=== PATIENT | female | born 1950 | race Caucasian/White ===

== ENCOUNTER 2016-05-05 06:05 | Emergency (ER) | payer BC, MEDICARE ==
[2016-05-05] MEDS ORDERED: PREDNISONE 20 MG TAB PO ONE (06:31)
--- NOTE | 2016-05-05 06:31 | Emergency Department Record ---
History of Present Illness - General Chief complaint: ENT Stated complaint: LOUD RINGING IN EAR Time Seen by Provider: 05/05/16 06:21 Source: Patient Mode of Arrival: Ambulatory Limitations: No limitations - History of Present Illness Initial comments: 65 yo female presents with ringing sound in the in the left ear for the last 45 minutes. She denies and headaches, fevers, trauma, vision changes, speech changes, dizziness, nausea, headache, or pain. No changes to her ability to hear on the left. She does have TMJ popping frequently. No new medications. No feeling of popping or fullness. No drainage. No swooshing noise or pulsation. MD complaint: Other (Ear ringing) Onset/Timin -: Minutes(s) Location: R ear Severity: Moderate Quality: Other (ringing) Improves with: None Worsens with: None Context-Epistaxis: Aspirin use - Related Data Home Medications Medication Instructions Recorded Confirmed Last Taken Amlodipine Besylate [Norvasc] 5 mg PO DAILY 06/11/14 05/05/16 Unknown Levothyroxine Sodium [Synthroid] 112 mcg PO DAILY 06/11/14 05/05/16 Unknown Aspirin 81 mg PO DAILY 05/05/16 05/05/16 Unknown Meclizine HCl [Antivert] 25 mg PO DAILY 05/05/16 05/05/16 Unknown Omeprazole 40 mg PO ASDIR 05/05/16 05/05/16 Unknown Oxybutynin Chloride [Ditropan Xl] 10 mg PO DAILY 05/05/16 05/05/16 Unknown Previous Rx's Medication Instructions Recorded Alprazolam [Xanax] 0.25 mg PO QHS #4 tablet 05/05/16 Prednisone [Prednisone 20Mg] 20 mg PO DAILY #4 tab 05/05/16 Allergies Allergy/AdvReac Type Severity Reaction Status Date / Time Sulfa (Sulfonamide Allergy Severe BRUISING Verified 05/05/16 06:09 Antibiotics) Travel Screening - Travel/Exposure Within Last 30 Days Have you traveled within the last 30 days?: No - Travel Symptoms Symptom Screening: None Review of Systems Constitutional: Denies: Chills, Fever, Malaise, Weakness Eyes: Denies: Eye discharge, Eye pain, Photophobia, Vision change ENT: Denies: Congestion, Throat pain Respiratory: Denies: Cough, Dyspnea, Hemoptysis, Stridor, Wheezes Cardiovascular: Denies: Chest pain, Palpitations, Syncope Endocrine: Denies: Fatigue Gastrointestinal: Denies: Abdominal pain, Diarrhea, Nausea, Vomiting Genitourinary: Denies: Dysuria, Urgency Musculoskeletal: Denies: Arthralgia, Back pain, Joint swelling, Myalgia Skin: Denies: Bruising, Change in color, Rash Neurological: Denies: Abnormal gait, Confusion, Headache, Numbness, Seizure, Tingling, Tremors, Vertigo, Weakness Psychiatric: Denies: Anxiety Hematological/Lymphatic: Denies: Blood Clots, Easy bleeding, Easy bruising, Swollen glands Past Medical History - SOCIAL HISTORY Smoking Status: Never smoker - RESPIRATORY Hx Respiratory Disorders: No - CARDIOVASCULAR Hx Cardio Disorders: Yes Hx Hypertension: Yes - NEURO Hx Neuro Disorders: Yes Hx Dizziness: Yes - GI Hx GI Disorders: Yes Hx Reflux: Yes - Hx Genitourinary Disorders: No - ENDOCRINE Hx Endocrine Disorders: Yes Hx Thyroid Disease: Yes - MUSCULOSKELETAL Hx Musculoskeletal Disorders: No - PSYCH Hx Psych Problems: No - HEMATOLOGY/ONCOLOGY Hx Hematology/Oncology Disorders: No Family Medical History Any Significant Family History?: Yes Hx Cancer: Mother, Brother/Sister Physical Exam - General General Appearance: Alert, Oriented x3, Cooperative, No acute distress Limitations: No limitations - Head Head exam: Atraumatic, Normocephalic, Normal inspection - Eye Eye exam: Normal appearance, PERRL. negative: Conjunctival injection, Periorbital swelling, Periorbital tenderness - ENT ENT exam: Normal exam, Mucous membranes dry, Mucous membranes moist, Normal orophraynx, TM's normal bilaterally, Other (No mastoid tenderness or redness, no sounds heard on auscultation over the ear, neck, mastoid,) Ear exam: Normal external inspection. negative: External canal tenderness Nasal Exam: Normal inspection. negative: Discharge, Sinus tenderness Mouth exam: Normal external inspection, Tongue normal. negative: Muffled voice , Trismus Teeth exam: Normal inspection. negative: Dental caries Throat exam: Normal inspection. negative: Tonsillar erythema, Tonsillomegaly, Tonsillar exudate, R peritonsillar mass - Neck Neck exam: Normal inspection, Full ROM. negative: Lymphadenopathy, Meningismus , Tenderness, Thyromegaly - Respiratory Respiratory exam: Normal lung sounds bilaterally. negative: Respiratory distress - Cardiovascular Cardiovascular Exam: Regular rate, Normal rhythm, Normal heart sounds - Rectal Rectal exam: Deferred - exam: Deferred - Extremities Extremities exam: Normal inspection, Full ROM, Normal capillary refill. negative: Tenderness - Neurological Neurological exam: Alert, CN II-XII intact, Normal gait, Oriented X3. negative : Motor sensory deficit - Psychiatric Psychiatric exam: Normal affect, Normal mood - Skin Skin exam: Dry, Intact, Normal color, Warm Course Vital Signs 05/05/16 06:14 Temperature 97.6 F Pulse Rate 81 Respiratory 18 Rate Blood Pressure 137/91 Pulse Ox 96 - Reevaluation(s) Reevaluation #1: the patient presents with left sided subjective ringing in her ear, the ear is normal on inspection, no other current symptoms she is on aspirin and was directed to hold this for now. she does have chronic TMJ pooping as this may be contributing she does not exhibit any neuro findings in addition she will be referred to see her PCP or ENt first of the week. 05/05/16 06:33 Disposition Disposition: Discharge Clinical Impression: Tinnitus Qualifiers: Laterality: left Qualified Code(s): H93.12 - Tinnitus, left ear Disposition: Home, Self-Care Condition: (1) Good Instructions: Tinnitus (ED) Additional Instructions: Call your doctor Friday morning for close follow up and a recheck You will likely need an ENT referral if this continues Return if worse or any new associated symptoms You may take the Xanax if needed for sleep No driving after taking Xanax Prescriptions: Alprazolam [Xanax] 0.25 mg PO QHS #4 tablet Prednisone [Prednisone 20Mg] 20 mg PO DAILY #4 tab Referrals: LANCE SEXTON [DOCTOR OF OSTEOPATH] - [facility] [Provider Group] Forms: Patient Portal Access Time of Disposition: 06:38
== END 2016-05-05 06:55 | disposition home or self-care (01) ==
LOC: ER 06:05
DX: H93.12 Tinnitus, left ear (principal); I10 Essential (primary) hypertension
CPT/HCPCS: 99283; J7512

== ENCOUNTER 2017-10-22 12:03 | Emergency (ER) | payer MEDICARE ==
--- NOTE | 2017-10-22 12:25 | Emergency Department Record ---
History of Present Illness - General Chief Complaint: Dizziness Stated Complaint: LIGHTHEADED.CANT FOCUS Time Seen by Provider: 10/22/17 12:20 Source: Patient Mode of Arrival: Ambulatory - History of Present Illness Initial Comments: patient is lightheaded and balance is off and she has had problems with vertigo for 2 years and similiar problem 3 months and evaluated at [facility]. No headache and no chest pain and no vomiting. She took an antivert 25 mg at 10:30 AM today prior to coming in. No trauma and no fever or infectious symptoms Onset/Timin -: Days(s) Description: Lightheadedness History of Same: Yes History of Trauma: No Severity: Moderate Improves With: Nothing Worsens With: Nothing Associated Symptoms: Denies other symptoms - Mikhail Coma Scale Eye Response: (4) Open spontaneously Motor Response: (6) Obeys commands Verbal Response: (5) Oriented Mikhail Total: 15 - Related Data Previous Rx's Medication Instructions Recorded Meclizine HCl [Antivert] 25 mg PO Q8H #30 tablet 10/22/17 Allergies Allergy/AdvReac Type Severity Reaction Status Date / Time Sulfa (Sulfonamide Allergy Severe BRUISING Unverified 09/29/17 11:13 Antibiotics) Travel Screening - Travel/Exposure Within Last 30 Days Have you traveled within the last 30 days?: No Review of Systems Reviewed: No additional complaints except as noted below Constitutional: Reports: As per HPI. Denies: Chills, Fever, Malaise, Night sweats, Weakness, Weight change Eyes: Reports: As per HPI. Denies: Eye discharge, Eye pain, Photophobia, Vision change ENT: Reports: As per HPI. Denies: Congestion, Dental pain, Ear pain, Epistaxis , Hearing loss, Throat pain Respiratory: Reports: As per HPI. Denies: Cough, Dyspnea, Hemoptysis, Stridor, Wheezes Cardiovascular: Reports: As per HPI. Denies: Arrhythmia, Chest pain, Dyspnea on exertion, Edema, Murmurs, Orthopnea, Palpitations, Paroxysmal nocturnal dyspnea, Rheumatic Fever, Syncope Endocrine: Reports: As per HPI. Denies: Fatigue, Heat or cold intolerance, Polydipsia, Polyuria Gastrointestinal: Reports: As per HPI. Denies: Abdominal pain, Constipation, Diarrhea, Hematemesis, Hematochezia, Melena, Nausea, Vomiting Genitourinary: Reports: As per HPI. Denies: Abnormal menses, Discharge, Dyspareunia, Dysuria, Frequency, Hematuria, Incontinence, Retention, Urgency Musculoskeletal: Reports: As per HPI. Denies: Arthralgia, Back pain, Gout, Joint swelling, Myalgia, Neck pain Skin: Reports: As per HPI. Denies: Bruising, Change in color, Change in hair/ nails, Lesions, Pruritus, Rash Neurological: Reports: As per HPI, Vertigo. Denies: Abnormal gait, Confusion, Headache, Numbness, Paresthesias, Seizure, Tingling, Tremors, Weakness Psychiatric: Reports: As per HPI. Denies: Anxiety, Auditory hallucinations, Depression, Homicidal thoughts, Suicidal thoughts, Visual hallucinations Hematological/Lymphatic: Reports: As per HPI. Denies: Anemia, Blood Clots, Easy bleeding, Easy bruising, Swollen glands Past Medical History - SOCIAL HISTORY Smoking Status: Never smoker Alcohol Use: None Drug Use: None - RESPIRATORY Hx Respiratory Disorders: No - CARDIOVASCULAR Hx Cardio Disorders: Yes Hx Hypertension: Yes - NEURO Hx Neuro Disorders: Yes Hx Dizziness: Yes - GI Hx GI Disorders: Yes Hx Reflux: Yes - Hx Genitourinary Disorders: No - ENDOCRINE Hx Endocrine Disorders: Yes Hx Thyroid Disease: Yes - MUSCULOSKELETAL Hx Musculoskeletal Disorders: No - PSYCH Hx Psych Problems: No - HEMATOLOGY/ONCOLOGY Hx Hematology/Oncology Disorders: No Family Medical History Any Significant Family History?: Yes Hx Cancer: Mother, Brother/Sister Physical Exam - General General Appearance: Alert, Oriented x3, Cooperative, No acute distress - Head Head exam: Normal inspection - Eye Eye exam: Normal appearance, PERRL Pupils: Normal accommodation - ENT ENT exam: Normal exam, Mucous membranes moist, Normal external ear exam, Normal orophraynx, TM's normal bilaterally Ear exam: Normal external inspection. negative: External canal tenderness Nasal Exam: Normal inspection. negative: Discharge, Sinus tenderness Mouth exam: Normal external inspection, Tongue normal Teeth exam: Normal inspection. negative: Dental caries Throat exam: Normal inspection. negative: Tonsillar erythema, Tonsillar exudate - Neck Neck exam: Normal inspection, Full ROM. negative: Tenderness - Respiratory Respiratory exam: Normal lung sounds bilaterally. negative: Respiratory distress - Cardiovascular Cardiovascular Exam: Regular rate, Normal rhythm, Normal heart sounds - GI/Abdominal GI/Abdominal exam: Soft, Normal bowel sounds. negative: Tenderness - Rectal Rectal exam: Deferred - exam: Deferred - Extremities Extremities exam: Normal inspection, Full ROM, Normal capillary refill. negative: Tenderness - Back Back exam: Reports: Normal inspection, Full ROM. Denies: Muscle spasm, Rash noted, Tenderness - Neurological Neurological exam: Alert, Normal gait, Oriented X3, Reflexes normal, Other ( sitting up causesd the feeling and she had nystagmus of her eyes) - Psychiatric Psychiatric exam: Normal affect, Normal mood - Skin Skin exam: Dry, Intact, Normal color, Warm Course Vital Signs 10/22/17 12:06 Temperature 98.0 F Pulse Rate 88 Respiratory 20 Rate Blood Pressure 146/74 Pulse Ox 99 Medical Decision Making - Lab Data Result diagrams: 10/22/17 12:45 10/22/17 12:45 Disposition Clinical Impression: Vertigo BPV (benign positional vertigo) Qualifiers: Laterality: left Qualified Code(s): H81.12 - Benign paroxysmal vertigo, left ear Disposition: Home, Self-Care Condition: (1) Good Instructions: Benign Paroxysmal Positional Vertigo (ED) Additional Instructions: follow up with family in 2 days Prescriptions: Meclizine HCl [Antivert] 25 mg PO Q8H #30 tablet Forms: Patient Portal Access Time of Disposition: 13:53 Quality - Quality Measures Quality Measures: N/A - Blood Pressure Screening Does Patient Have Any of the Following: No Blood Pressure Classification: Hypertensive Reading Systolic Measurement: 146 Diastolic Measurement: 74 Screening for High Blood Pressure: < Pre-Hypertensive BP, F/U Documented > [ [id number]] Pre-Hypertensive Follow-up Interventions: Referral to alternative/primary care provider.
[2017-10-22] MEDS: 0.9 % SODIUM CHLORIDE 1,000 ML BAG IV ONE (12:30)
[2017-10-22 12:58] LABS: BASO % 0.4 % (0-6); EOS % 1.4 % (0-6); GRAN % 78.1 % (47-80); HEMATOCRIT 40.1 % (35.0-47.0); HEMOGLOBIN 13.1 gm/dl (11.6-16.0); LYMPH % 13.9 % (16-45); MEAN CELL VOLUME 91.6 fl (81-97); MEAN CORPUSCULAR HEMOGLOBIN 29.9 pg (27-33); MEAN CORPUSCULAR HGB CONC 32.7 g/dl (32-36); MEAN PLATELET VOLUME 8.7 fl (7.4-10.4); MONO % 6.2 % (0-9); PLATELET COUNT 322 K/uL (130-400); RED BLOOD COUNT 4.38 M/uL (3.80-5.40); RED CELL DISTRIBUTION WIDTH 13.7 % (11.5-14.5); WHITE BLOOD COUNT W/O DIFF 9.2 K/uL (4.2-12.2)
[2017-10-22 13:09] LABS: BLOOD UREA NITROGEN 14 mg/dL (8-23); CREATININE 0.7 mg/dL (0.5-0.9); EST GLOMERULAR FILTRATION RATE > 60 mL/min
[2017-10-22 13:12] LABS: GLUCOSE,RANDOM 121 mg/dL (74-109)
[2017-10-22 13:25] LABS: URINE APPEARANCE CLEAR; URINE BILIRUBIN NEGATIVE (NEGATIVE); URINE BLOOD NEGATIVE (NEGATIVE); URINE COLOR YELLOW; URINE GLUCOSE (UA) NEGATIVE (NEGATIVE); URINE KETONE NEGATIVE (NEGATIVE); URINE LEUKOCYTE ESTERASE NEGATIVE (NEGATIVE); URINE NITRITE NEGATIVE (NEGATIVE); URINE PROTEIN NEGATIVE (NEGATIVE); URINE UROBILINOGEN 0.2 E.U./dL (0.20 - 1.00)
== END 2017-10-22 14:08 | disposition home or self-care (01) ==
LOC: ER 12:03
DX: H81.12 Benign paroxysmal vertigo, left ear (principal); I10 Essential (primary) hypertension
CPT/HCPCS: 80048; 81003; 85025; 93005; 93010; 99284; J7030

== ENCOUNTER 2018-12-22 21:30 | Emergency (ER) | payer MEDICARE ==
[2018-12-22] MEDS ORDERED: METHYLPREDNISOLONE PF 125MG/VIAL IM ONE (21:44)
--- NOTE | 2018-12-22 21:49 | Emergency Department Record ---
History of Present Illness - General Chief Complaint: Neck Injury/Pain Stated Complaint: NECK PAIN Time Seen by Provider: 12/22/18 21:44 Source: Patient Mode of Arrival: Ambulatory Limitations: No limitations - History of Present Illness Initial Comments: 68 yo female presents to ED for evaluation of left sided posterior neck pain for the past 2 days, reports chronic neck pain symptoms "for years". Patient denies numbness, tingling, or extremity weakness. Patient denies injury or lifting injury. Patient reports taking Tylenol at home that have not improved her symptoms. Patient talked with her daughter who told her she may have a "blood clot", and to come to the ED for evaluation. MD Complaint: Neck pain Onset/Timin -: Days(s) Place: Home Severity: Moderate Quality: Aching Consistency: Constant Improves With: None Worsens With: None Associated Symptoms: None Treatments Prior to Arrival: Acetaminophen - Related Data Allergies Allergy/AdvReac Type Severity Reaction Status Date / Time Sulfa (Sulfonamide Allergy Severe BRUISING Verified 12/22/18 21:43 Antibiotics) Review of Systems Constitutional: Denies: Chills, Fever, Malaise, Night sweats Eyes: Denies: Eye discharge, Eye pain ENT: Denies: Congestion, Ear pain Respiratory: Denies: Cough, Dyspnea Cardiovascular: Denies: Chest pain, Dyspnea on exertion Endocrine: Denies: Fatigue, Heat or cold intolerance Gastrointestinal: Denies: Abdominal pain, Nausea, Vomiting Genitourinary: Denies: Incontinence, Retention Musculoskeletal: Reports: Neck pain. Denies: Back pain, Gout Skin: Denies: Bruising, Change in color Neurological: Denies: Abnormal gait, Confusion, Headache, Seizure Psychiatric: Denies: Anxiety Hematological/Lymphatic: Denies: Anemia, Blood Clots Past Medical History - SOCIAL HISTORY Smoking Status: Never smoker Drug Use: None - RESPIRATORY Hx Respiratory Disorders: No - CARDIOVASCULAR Hx Cardio Disorders: Yes Hx Hypertension: Yes - NEURO Hx Neuro Disorders: Yes Hx Dizziness: Yes - GI Hx GI Disorders: Yes Hx Reflux: Yes - Hx Genitourinary Disorders: No - ENDOCRINE Hx Endocrine Disorders: Yes Hx Thyroid Disease: Yes - MUSCULOSKELETAL Hx Musculoskeletal Disorders: No - PSYCH Hx Psych Problems: No - HEMATOLOGY/ONCOLOGY Hx Hematology/Oncology Disorders: No Family Medical History Hx Cancer: Mother, Brother/Sister Physical Exam - General General Appearance: Alert, Oriented x3, Cooperative, Mild distress Limitations: No limitations - Head Head exam: Atraumatic, Normocephalic, Normal inspection Head exam detail: negative: Abrasion, Contusion, Ferraro's sign, General tenderness, Hematoma, Laceration - Eye Eye exam: Normal appearance. negative: Conjunctival injection, Periorbital swelling, Periorbital tenderness, Scleral icterus - ENT Ear exam: negative: Auricular hematoma, Auricular trauma Nasal Exam: negative: Active bleeding, Discharge, Dried blood, Foreign body Mouth exam: negative: Drooling, Laceration, Muffled voice, Tongue elevation - Neck Neck exam: Tenderness (TTP and spasm over the left trapizius muscle on examination. Strong distal raidal pulse, social secretary strength 5/5 and symmetric, no edema noted to the left upper extremity to suggest DVT of the UE. ). negative: Meningismus - Respiratory Respiratory exam: Normal lung sounds bilaterally. negative: Rales, Respiratory distress, Rhonchi, Stridor - Cardiovascular Cardiovascular Exam: Regular rate, Normal rhythm, Normal heart sounds - GI/Abdominal GI/Abdominal exam: Soft. negative: Rebound, Rigid, Tenderness - Rectal Rectal exam: Deferred - exam: Deferred - Extremities Extremities exam: Normal inspection. negative: Pedal edema, Tenderness - Back Back exam: Denies: CVA tenderness (R), CVA tenderness (L) - Neurological Neurological exam: Alert, Normal gait, Oriented X3. negative: Motor sensory deficit - Psychiatric Psychiatric exam: Normal affect, Normal mood - Skin Skin exam: Normal color. negative: Abrasion Type of lesion: negative: abrasion Course Vital Signs 12/22/18 21:33 Temperature 97.6 F Pulse Rate [ 92 H Pulse Ox Probe] Respiratory 20 Rate Blood Pressure 167/77 [Left Arm] Pulse Ox 97 - Reevaluation(s) Reevaluation #1: 12/22/18 22:11 Patient was reassessed, resting comfortably. Patient appears stable for discharge at this time with Valium as needed at night. All questions were answered at the time of discharge. Disposition Disposition: Discharge Clinical Impression: Trapezius muscle strain Qualifiers: Encounter type: initial encounter Laterality: left Qualified Code(s): S46.812A - Strain of other muscles, fascia and tendons at shoulder and upper arm level, left arm, initial encounter Disposition: Home, Self-Care Condition: (2) Stable Instructions: Cervical Sprain (ED) Additional Instructions: Return to ED if your symptoms worsen or if you have any concerns. Valium as needed. Follow-up with your family doctor in 3-5 days as directed. Forms: Patient Portal Access Time of Disposition: 22:09 Quality - Quality Measures Quality Measures: N/A - Blood Pressure Screening Does Patient Have Any of the Following: Active Dx of HTN Blood Pressure Classification: Hypertensive Reading Systolic Measurement: 167 Diastolic Measurement: 77 Screening for High Blood Pressure: Patient Exclusion, Hx of HTN [G9744]
[2018-12-22] MEDS ORDERED: DIAZEPAM 5 MG TABLET PO ONE (22:27)
== END 2018-12-22 22:32 | disposition home or self-care (01) ==
LOC: ER 21:30
DX: S46.812A Strain of other muscles, fascia and tendons at shoulder and upper arm level, left arm, initial encounter (principal); X58.XXXA Exposure to other specified factors, initial encounter; Y92.009 Unspecified place in unspecified non-institutional (private) residence as the place of occurrence of the external cause
CPT/HCPCS: 96372; 99284; J2930